=== PATIENT | female | born 1970 | race Hispanic/Latino ===

== ENCOUNTER → 2020-05-03 | Day surgery (SDC) | payer BC ==
--- NOTE | 2020-05-03 10:16 | MMO ---
Exam: Left breast stereotactic biopsy with mammographic guidance Surgical specimen Postprocedure mammogram FINDINGS: Successful left breast stereotactic biopsy. Calcifications are present on the biopsy sample . Postbiopsy mammogram was performed. Clip position is slightly anterior to the biopsy site on the CC and MLO projection. TECHNIQUE: Consent obtained to perform a left breast are detected biopsy. Left breast was prepped and draped in sterile fashion. 1% lidocaine, buffered with sodium bicarbonate was used for local anesthesia. Calcifications were identified. Needle position was confirmed pre and post firing. Total of 12 10-gauge core biopsy samples were obtained. 2 separate sets of specimens were radiographed. Biopsy clip was placed. There are no immediate or postprocedure complications. Postprocedure mammogra m was performed. Specimen radiograph: 2 separate specimen radiographs were performed. Calcifications are present in bhaskar th specimen radiographs. Postbiopsy mammogram: Postsurgical changes are identified. The number of calcifications has decreased . The biopsy clip is slightly anterior to the biopsy site on both the CC and MLO projection. IMPRESSION: Successful left breast stereotactic biopsy. Transcribed Date/Time: 05/03/2020 10:48 AM
== END ==
LOC: MAMMO 07:01
PROVIDERS: ATTEND Surgery
PROC: 0H9U3ZX Drainage of Left Breast, Percutaneous Approach, Diagnostic (ICD-10-PCS; principal; 2020-05-03)
DX: D05.12 Intraductal carcinoma in situ of left breast (principal)
CPT/HCPCS: 19081; 76098; 88305

== ENCOUNTER 2020-05-18 13:11 | Outpatient (CLI) | payer BC, OTHER ==
[2020-05-18 14:17] LABS: #Basophils 0.1 10x3/uL (0.0-0.2); #Eosinphils 0.2 10x3/uL (0.0-0.5); #Monocytes 0.6 10x3/uL (0.0-1.1); #Neutrophils 6.8 10x3/uL (1.5-8.4); %Basophils 0.8 % (0.0-2.0); %Eosinophils 1.6 % (0.0-6.0); %Lymphocytes 21.9 % (18.0-47.0); %Monocytes 5.9 % (0.0-10.0); %Neutrophils 69.5 % (40.0-75.0); Hemoglobin 13.2 g/dL (12.0-16.0); Mean Corpuscular HGB CONC 34.4 G/DL (32.0-36.0); Mean Corpuscular Hemoglobin 29.5 PG (27.0-33.0); Mean Corpuscular Volume 85.9 fl (80.0-100.0); Mean Platelet Volume 11.8 fl (7.4-10.4); Platelet Count 293 10x3/uL (130-400); RBC Distribution Width 12.4 % (11.5-14.5); Red Blood Cell (RBC) Count 4.47 10x6/uL (3.90-5.20); White Blood Cell (WBC) Count 9.9 10x3/uL (4.5-11.0)
[2020-05-18 14:39] LABS: Anion Gap 14 mmol/L (10-20); BUN (Urea Nitrogen) 20 mg/dL (7.0-18.7); Calc. Creatinine Clearance 0 mL/min (70-130); Calcium 9.8 mg/dL (7.8-10.44); Carbon Dioxide 25 mmol/L (22-29); Chloride 104 mmol/L (98-107); Glucose 106 mg/dL (70-105); Potassium 3.8 mmol/L (3.5-5.1); Sodium 139 mmol/L (136-145)
[2020-05-18 21:44] LABS: SARS-CoV-2 MS2 Positive; SARS-CoV-2 N Gene Negative; SARS-CoV-2 S Gene Negative; SARS-CoV-2 by NAA Not Detected (NotDetected); SARS-CoV-2 orf1ab Negative
== END 2020-05-18 13:12 | disposition home or self-care (01) ==
LOC: LABBT 13:11
PROVIDERS: ATTEND Surgery
DX: Z01.812 Encounter for preprocedural laboratory examination (principal); Z20.828 Contact with and (suspected) exposure to other viral communicable diseases
CPT/HCPCS: 80048; 85025; 87635; U0003

== ENCOUNTER 2020-05-23 06:30 | Outpatient (CLI) | payer BC, OTHER ==
[2020-05-23 18:34] LABS: SARS-CoV-2 MS2 Positive; SARS-CoV-2 N Gene Negative; SARS-CoV-2 S Gene Negative; SARS-CoV-2 by NAA Not Detected (NotDetected); SARS-CoV-2 orf1ab Negative
== END 2020-05-23 06:31 | disposition home or self-care (01) ==
LOC: LABBT 06:30
PROVIDERS: ATTEND Surgery
DX: Z01.812 Encounter for preprocedural laboratory examination (principal); C50.912 Malignant neoplasm of unspecified site of left female breast; Z20.828 Contact with and (suspected) exposure to other viral communicable diseases
CPT/HCPCS: 87635; U0003

== ENCOUNTER 2020-05-28 06:56 | Day surgery (SDC) | payer BC, OTHER ==
[2020-05-21 10:23] VITALS: BMI 33.6
--- NOTE | 2020-05-28 08:11 | HP ---
CHIEF COMPLAINT: Ductal carcinoma in situ, left breast. HISTORY OF PRESENT ILLNESS: The patient is a 49-year-old female who had an abnormal mammogram, underwent a core needle biopsy that came back ductal carcinoma in situ. She is here for lumpectomy and sentinel lymph node biopsy. PAST MEDICAL HISTORY: Significant for anxiety, hypertension. PAST SURGICAL HISTORY: , tubal ligation, cholecystectomy, tonsillectomy, hysterectomy, abdominoplasty. MEDICATIONS: 1. Fluoxetine. 2. Hydrochlorothiazide. 3. Clonazepam. 4. Vitamin A and D, B12. FAMILY HISTORY: Father with hypertension. Mother with diabetes. SOCIAL HISTORY: No tobacco. Occasional alcohol. She is . ALLERGIES: THERE ARE NO KNOWN DRUG ALLERGIES. PHYSICAL EXAMINATION: GENERAL: Height 58, weight 161, body mass index 33.6. Well-developed, well-nourished female, in no apparent distress. HEENT: Unremarkable. LUNGS: Clear. HEART: Regular rate and rhythm. ABDOMEN: Soft, nontender. Good bowel sounds. BREASTS: There are no palpable breast masses. No lymphadenopathy. EXTREMITIES: No pedal edema. ASSESSMENT: Ductal carcinoma in situ with dysplasia. PLAN: Needle localization, lumpectomy, and sentinel node biopsy. CONSENT: I have discussed planned procedure as well as risk of bleeding, infection, injury to nerves, pulling of arm. She understands and gives informed consent. Job ID: [id number]
--- NOTE | 2020-05-28 09:35 | NM ---
NM Lymphoscintigraphy History: Malignant neoplasm of unspecified site of unspecified female breast Comparison: Left breast needle localization same day Findings: The technologist instilled 0.385 mCi technetium 99m sulfur colloid in the periareolar regio n. The uptake is in the left axillary chain. Impression: Waggoner lymph node left axilla.
[2020-05-28] MEDS ORDERED: Dexamethasone 20 MG/5 ML VIAL ONE (09:56)
[2020-05-28] MEDS ORDERED: PHENYLEPHRINE-NS 100 MCG/ML 10 ML SYRINGE ONE (09:56)
[2020-05-28] MEDS ORDERED: PROPOFOL 200 MG/20 ML VIAL ONE (09:56)
[2020-05-28] MEDS ORDERED: Ketorolac Tromethamine 30 MG/ML VIAL ONE (09:56)
[2020-05-28] MEDS ORDERED: Ondansetron PF 4 MG/2 ML Vial ONE (09:56)
[2020-05-28] MEDS ORDERED: Lidocaine 1% PF 5 ML VIAL ONE (09:56)
[2020-05-28] MEDS ORDERED: Fentanyl 100 MCG/2 ML VIAL ONE ×3 (10:21→13:53)
[2020-05-28] MEDS ORDERED: Midazolam HCl 2 mg/2 ml Vial ONE (10:21)
[2020-05-28] MEDS ORDERED: Bupivacaine 0.25% HCL 30 ML VIAL ONE (10:25)
[2020-05-28] MEDS ORDERED: Lidocaine 1% w/Epinephrine 1:100K 20 ML VIAL ONE (10:25)
[2020-05-28] MEDS ORDERED: Isosulfan Blue 50 MG/5 ML VIAL ONE (10:25)
--- NOTE | 2020-05-28 12:07 | MMO ---
MAMMO Surgial Specimen History: Breast calcifications Comparison: Needle localization same day Findings: Adequate specimen which contains the clip, calcifications, and the wire. Impression: Satisfactory specimen.
--- NOTE | 2020-05-28 12:31 | MMO ---
MAMMO Brst Loc Dev Mammo Guide History: Breast calcifications Comparison: Stereotactic biopsy May 03, 2020 Findings: Patient was brought to the mammography suite. Questions were answered. Informed consent obtained. Timeout performed. Patient's left breast was prepped and draped in normal sterile fashion. Using mammographic guidance t he calcifications in the localized. The wire is directly in the middle between the calcifications in the clip. Impression: Technically successful mammographic guided needle localization left breast upper outer qu adrant calcifications.
[2020-05-28] MEDS ORDERED: HYDROcodone/Acetaminophen 5/325 mg Tablet ONE (15:03)
--- NOTE | 2020-05-29 07:37 | OP ---
DATE OF PROCEDURE: 05/28/2020 PREOPERATIVE DIAGNOSIS: High-grade ductal carcinoma in situ, left breast. PROCEDURES PERFORMED: Lymphoscintigraphy, left sentinel lymph node biopsy, left partial mastectomy. INDICATIONS: A 49-year-old female had an abnormal mammogram, nonpalpable mass. Core needle biopsy showed high-grade DCIS. Multiple microcalcifications were also present. FINDINGS: Single sentinel node was found, 5 x 5 cm tissue removed. Successful removal of both microcalcifications and clip by specimen mammography. DESCRIPTION OF PROCEDURE: After informed consent was obtained, the patient was taken to the operating room, given general endotracheal anesthesia. She had undergone injection of radionucleotide in the mammography suite. Her left breast and axilla were prepped and draped in usual fashion. A Neoprobe was used and baseline counts of 10 were found on transcutaneous count on the left axilla of 130 found. A local anesthesia infiltrated. A transverse axillary incision was performed. Subcutaneous divided sharply. The in vivo counts of almost 900 were found and ex vivo counts of 1400 and a blue lymph node was dissected out. Efferent and afferent lymphatics ligated with 3-0 Vicryl ties and sent to Pathology. Residual counts were all low. The hemostasis was achieved with electrocautery as well as stick ties of 3-0 Vicryl. Hemostasis was assured. Then, a local anesthesia was infiltrated subcutaneously and deep. A curvilinear incision was performed in the upper outer subareolar region or periareolar region. Subcutaneous was divided sharply and a core breast tissue was excised superiorly. I was able to find the needle and then I could feel the base of the needle, so I went about 2 cm lower than that and excised tissue all the way down to the pectoralis fascia and then the needle introducer was removed. The needle was brought up through the incision and the specimen delivered. The specimen was marked with a needle superior, a blue suture anterior, white suture lateral sent to mammography showing that it did contain both the microcalcifications and the clip and sent to Pathology for further analysis. Hemostasis was achieved with electrocautery. The wound was thoroughly irrigated. Irrigation fluid was removed. She has very large breast and it was down on the chest wall, so a drain was placed, brought out through the axilla, and then back through the axilla and out through a separate stab wound on the skin of the chest wall. This was sutured in place. Subcutaneous reapproximated with interrupted 3-0 Vicryl. Skin was closed with a running subcuticular 4-0 Rapide. Steri-Strips were applied. Sterile bandage was applied. The patient tolerated the procedure well and transferred to Recovery in good condition. Sponge and needle count verified correct x2. Job ID: [id number]
== END 2020-05-28 15:35 | disposition home or self-care (01) ==
LOC: NM 06:56
PROVIDERS: ATTEND Surgery
PROC: 07B60ZX Excision of Left Axillary Lymphatic, Open Approach, Diagnostic (ICD-10-PCS; principal; 2020-05-28)
PROC: 0HBU0ZZ Excision of Left Breast, Open Approach (ICD-10-PCS; principal; 2020-05-28)
DX: D05.12 Intraductal carcinoma in situ of left breast (principal); F41.9 Anxiety disorder, unspecified; I10 Essential (primary) hypertension; Z79.899 Other long term (current) drug therapy
CPT/HCPCS: 19281; 76098; 78195; 88307; 88342; A9541; J0690; J1100; J1885; J2250; J2405; J2704; J3010; Q9968; S0020

== ENCOUNTER 2020-07-23 09:59 | Day surgery (SDC) | payer BC ==
[2020-07-20 12:42] VITALS: BMI 33.8
[2020-07-23] MEDS ORDERED: PROPOFOL 200 MG/20 ML VIAL ONE (10:06)
[2020-07-23] MEDS ORDERED: Dexamethasone 20 MG/5 ML VIAL ONE (10:06)
[2020-07-23] MEDS ORDERED: Ondansetron PF 4 MG/2 ML Vial ONE (10:06)
[2020-07-23] MEDS ORDERED: Lidocaine 1% PF 5 ML VIAL ONE (10:06)
[2020-07-23] MEDS ORDERED: Metoclopramide HCl 10 MG/2 ML VIAL ONE (10:06)
[2020-07-23] MEDS ORDERED: Ketorolac Tromethamine 30 MG/ML VIAL ONE (10:06)
[2020-07-23] MEDS ORDERED: PHENYLEPHRINE-NS 100 MCG/ML 10 ML SYRINGE ONE (10:06)
[2020-07-23] MEDS ORDERED: Fentanyl 100 MCG/2 ML VIAL ONE ×2 (11:17→12:36)
[2020-07-23] MEDS ORDERED: Famotidine/PF 20 mg/2ml Vial ONE (11:17)
[2020-07-23] MEDS ORDERED: Bupivacaine 0.25% HCL 30 ML VIAL ONE (11:25)
[2020-07-23] MEDS ORDERED: EPINEPHrine 1 MG/ML AMP ONE (11:25)
--- NOTE | 2020-07-23 15:32 | OP ---
DATE OF PROCEDURE: 07/23/2020 PREOPERATIVE DIAGNOSIS: Left breast hematoma. PROCEDURE PERFORMED: Evacuation of hematoma. INDICATIONS: A 49-year-old female who is about 5 weeks status post lumpectomy, complicated by hematoma, persisted. It is causing discomfort. FINDINGS: 5 x 5 cm cavity was coagulated. Blood cultures were obtained. DESCRIPTION OF PROCEDURE: After informed consent was obtained, the patient was taken to the operating room. Her left breast was prepped and draped in usual fashion. Local anesthesia was infiltrated subcutaneously and deep, and a curvilinear incision was performed circumareolar through the old incision. Subcu divided sharply down to the cavity. Cultures were obtained. Then digitally as much of this was removed. The suction was used to remove some and then the cavity was irrigated, cleaned with saline. Hemostasis assured with electrocautery. A drain was placed and brought out through a separate stab wound, placed in the cavity. Hemostasis assured. The subcu was reapproximated with interrupted 3-0 Vicryl. Skin closed with running subcuticular 4-0 Rapide. Steri-Strips applied. Sterile bandage applied. The patient tolerated the procedure well, transferred to Recovery in good condition. Sponge and needle count verified correct x2. Job ID: [id number]
== END 2020-07-23 14:07 | disposition home or self-care (01) ==
LOC: SDC 09:59
PROVIDERS: ATTEND Surgery
PROC: 0JC60ZZ Extirpation of Matter from Chest Subcutaneous Tissue and Fascia, Open Approach (ICD-10-PCS; principal; 2020-07-23)
DX: N64.89 Other specified disorders of breast (principal); F41.9 Anxiety disorder, unspecified; I10 Essential (primary) hypertension; Z79.899 Other long term (current) drug therapy
CPT/HCPCS: 87070; 87205; J0171; J0690; J1100; J1885; J2405; J2704; J2765; J3010; S0020; S0028